=== PATIENT | female | born 1975 | race African-American/Black ===

== ENCOUNTER → 2019-10-17 | Outpatient (CLI) | payer BC ==
--- NOTE | 2019-10-17 17:12 | PCVCIMAG ---
APPROVED REPORT Study performed: 10/17/2019 15:43:26 EXAM: Comprehensive 2D, Doppler, and color-flow Echocardiogram Patient Location: Echo lab Room #: 2Status: routine BSA: 1.72 HR: 77 bpmBP: 144/100 mmHg Rhythm: NSR Other Information Study Quality: Good Risk Factors: Cardiac Risk Factors: HTN, Hyperlipidemia Indications Murmur 2D Dimensions IVSd: 9.80 (7-11mm)LVOT Diam: 18.67 (18-24mm) LVDd: 43.91 mm PWd: 9.22 (7-11mm)Ascending Ao: 31.93 (22-36mm) LVDs: 29.64 (25-40mm) Left Atrium: 27.58 (27-40mm) Aortic Root: 25.05 mm LV Single Plane 4CH: 51.76 % LV Single Plane 2CH: 59.15 % Biplane EF: 56.7 % Volumes Left Atrial Volume (Systole) Single Plane 4CH: 28.46 mLSingle Plane 2CH: 32.10 mL Biplane LA Volume: 30.00 mLLA ESV Index: 18.00 mL/m2 Aortic Valve AoV Peak Jose.: 1.38 m/s AO Peak Gr.: 7.59 mmHgLVOT Max P.08 mmHg LVOT Max V: 0.72 m/s GET Vmax: 1.43 cm2 Mitral Valve E/A Ratio: 1.4 MV Decel. Time: 77.12 ms MV E Max Jose.: 0.80 m/s MV A Jose.: 0.57 m/s IVRT: 89.97 ms TDI E/Lateral E': 7.27E/Medial E': 10.00 Medial E' Jose.: 0.08 m/s Lateral E' Jose.: 0.11 m/s Pulmonary Valve PV Peak Jose.: 0.71 m/sPV Peak Gr.: 1.99 mmHg Pulmonary Vein P Vein S: 0.34 m/sP Vein A: 0.31 m/s P Vein D: 0.40 m/sP Vein A Dur.: 72.7 msec P Vein S/D Ratio: 0.85 Tricuspid Valve TR Peak Jose.: 1.80 m/s TR Peak Gr.: 12.89 mmHg TV Vmax: 0.75 m/sPA Pressure: 23.00 mmHg Left Ventricle The left ventricle is normal size. There is normal LV segmental wall motion. There is normal left ventricular wall thickness. Left ventricular systolic function is normal. The left ventricular ejection fraction is within the normal range. LVEF is 55-60%. The left ventricular diastolic function is normal. Right Ventricle The right ventricle is normal size. The right ventricular systolic function is normal. Atria The left atrium size is normal. The right atrium size is normal. Aortic Valve Aortic valve is trileaflet. The aortic valve is normal in structure and function. No aortic regurgitation is present. There is no aortic valvular stenosis. Mitral Valve The mitral valve is normal in structure and function. Trace to mild mitral regurgitation. No evidence of mitral valve stenosis. Tricuspid Valve The tricuspid valve is normal in structure. Mild to moderate tricuspid regurgitation with a PA pressure of 23 mmHg. Pulmonic Valve The pulmonary valve is normal in structure. There is no pulmonic valvular regurgitation. Great Vessels The aortic root is normal in size. The ascending aorta is normal in size. Aortic arch is normal in caliber. IVC is dilated and collapses >50% with inspiration. Pericardium There is no pericardial effusion. There is no pleural effusion. <Conclusion> Left ventricular systolic function is normal. There is normal LV segmental wall motion. LVEF is 55-60%. The aortic valve is normal in structure and function. The mitral valve is normal in structure and function. Trace to mild mitral regurgitation. Mild tricuspid regurgitation with a pulmonary artery pressure of 23 mmHg. There is no pericardial effusion.
--- NOTE | 2019-10-17 17:14 | PCVCIMAG ---
APPROVED REPORT Patient Location: Echo lab- [facility]ESS TEST Room #: 2 Stress Nurse: Sunita Hughes RN iNDICATIONS: Hypertension,Murmur,Dyslipidemia The patient exercised according to the MARILYN protocol for 10:50 mins; achieving a work level of 13.4 METS. The resting heart rate of 85 bpm sravanthi to a maximum heart rate of 181 bpm. This value represent 103% of the maximal, age-predicted heart rate. The resting blood pressure of 144/100 mmHg, sravanthi to a maximum blood pressure of 180/100 mmHg. The exercise test was stopped due to fatigue and dyspnea . Resting EKG: Sinus rhythm normal tracing Stress electrocardiogram: No dysrhythmias. No diagnostic ischemic electrocardiographic changes. Hypertensive response to exercise. Conclusion 1. Normal treadmill exercise study negative for exercise-induced myocardial ischemia. 2. No subjective signs of ischemia. No ischemic electrocardiographic changes. Hypertensive response to exercise 3. The study was associated with good exercise capacity (13.4METS). Low Gaitan treadmill exercise score. With her hypertension and hypertensive response to exercise, have started amlodipine 5 mg daily, prescription given.
== END | disposition home or self-care (01) ==
LOC: PCVCIMAG 15:13
PROVIDERS: ATTEND Internal Medicine
DX: I08.1 Rheumatic disorders of both mitral and tricuspid valves (principal); I10 Essential (primary) hypertension; J45.909 Unspecified asthma, uncomplicated; E78.5 Hyperlipidemia, unspecified; E89.0 Postprocedural hypothyroidism; Z90.09 Acquired absence of other part of head and neck; Z83.3 Family history of diabetes mellitus; Z80.9 Family history of malignant neoplasm, unspecified
CPT/HCPCS: 93017; 93306